=== PATIENT | female | born 1965 | race Caucasian/White ===

== ENCOUNTER 2017-10-31 15:12 | Outpatient (CLI) | END 2017-10-31 16:09 | disposition home or self-care (01) ==

== ENCOUNTER 2017-11-14 15:57 | Outpatient (CLI) | END 2017-11-14 16:32 | disposition home or self-care (01) ==

== ENCOUNTER 2018-09-04 12:16 | Inpatient (IN) | payer OTHER ==
[~2018-09-04] VITALS: Ht 160 cm; Wt 120.9 kg
[~2018-09-04 12:16] MED LIST: APIX5TAB PO; ATOR40TA68 PO; GUAI-637 PO; HYDR25TA6 PO; IBUP-1542 PO; LISI40TA3 PO; METF-849 PO; SODI126M NASAL
[2018-09-04] MEDS ORDERED: SOD CHLORIDE 0.9% 1,000 ML IV STA (13:03)
[2018-09-04] MEDS ORDERED: HYDROmorphONE 1 MG/ML SYG IV STA (13:03)
[2018-09-04] MEDS ORDERED: PROCHLORPERAZINE 10 MG INJ IV STA (13:03)
[2018-09-04] MEDS ORDERED: DIPHENHYDRAMINE 50 MG INJ IV STA (13:03)
--- NOTE | 2018-09-04 13:06 | ERD ---
ER Documentation Chief Complaint Chief Complaint HTN WITH MILD FACIAL ASYMMETRY--HX OF CVA HPI This is a 53-year-old female who stated that last night around 11 PM she developed a occipital pounding headache and noticed that her left face was not moving as well. She said her blood pressure was over 200 systolic and took some lisinopril. She says today her face has not changed for the worse or the better, she has no symptoms in her arms or legs. No speech difficulty. She does states difficult to move her left face, but no tingling ROS All systems reviewed and are negative except as per history of present illness. Medications Home Meds Reported Medications Metformin Hcl* (Metformin Hcl*) 500 Mg Tablet, 500 MG PO WITH BREAKFAST DINNE, #60 TAB 09/04/18 Lisinopril* (Lisinopril*) 40 Mg Tablet, 40 MG PO DAILY, #30 TAB 09/04/18 Apixaban* (Eliquis*) 5 Mg Tablet, 5 MG PO BID, TAB 09/04/18 Nifedipine* (Nifedipine ER*) 30 Mg Tablet.sa, 30 MG PO DAILY, TAB.SA 09/04/18 Discontinued Reported Medications Hydrochlorothiazide* (Hydrochlorothiazide*) 25 Mg Tab, 25 MG PO DAILY, #30 TAB 10/31/17 Atorvastatin* (Atorvastatin*) 40 Mg Tablet, 40 MG PO QHS, #30 TAB 10/31/17 Apixaban* (Eliquis*) 5 Mg Tablet, 5 MG PO BID, TAB 10/31/17 Metformin* (Glucophage*) 500 Mg Tab, 500 MG PO WITH LUNCH DINNER, #60 TAB 10/31/17 Lisinopril* (Lisinopril*) 40 Mg Tablet, 40 MG PO DAILY, #30 TAB 10/31/17 Discontinued Scripts Sodium Chloride (Saline Nasal Mist) 126 Ml Mist, 2 SPRAY NASAL Q2H PRN for NASAL CONGESTION, #1 BOTTLE Prov:JOVAN KAUFFMAN COMPLIANCE ADVISOR 07/20/18 Guaifenesin* (Robitussin*) 100 Mg/5 Ml Syrup, 200 MG PO Q4H PRN for COUGH, #120 ML Prov:JOVAN KAUFFMAN COMPLIANCE ADVISOR 07/20/18 Ibuprofen* (Motrin*) 600 Mg Tab, 600 MG PO Q6H PRN for PAIN AND OR ELEVATED TEMP, #30 TAB Prov:JOVAN KAUFFMAN COMPLIANCE ADVISOR 07/20/18 Allergies Allergies: Coded Allergies: No Known Drug Allergies (Verified Allergy, Unknown, 09/04/18) PMhx/Soc Hx Cardiac Disorders: Yes (HTN, high cholesterol) Hx Miscellaneous Medical Probl: Yes (DM 2) Hx Alcohol Use: No Hx Substance Use: No Hx Tobacco Use: No FmHx Family History: No coronary disease Physical Exam Vitals Vital Signs Date Temp Pulse Resp B/P (MAP) Pulse Ox O2 O2 Flow FiO2 Time Delivery Rate 09/04/18 82 16 120/68 93 Room Air 15:30 (85) 09/04/18 64 14 129/71 94 Room Air 14:40 (90) 09/04/18 98.0 101 18 238/116 95 12:23 (156) Physical Exam Const: Well-developed, well-nourished Head: Atraumatic, normocephalic Eyes: Normal Conjunctiva, PERRLA, EOMI, normal sclera, no nystagmus ENT: Normal External Ears, Nose and Mouth, moist mucus membranes. Neck: Full range of motion. No meningismus, no lymphadenopathy. Resp: Clear to auscultation bilaterally, no wheezing, rhonchi, rales Cardio: Regular rate and rhythm, no murmurs, S1 S2 present Abd: Soft, non tender x 4, non distended. Normal bowel sounds, no guarding or rebound, no pulsitile abdominal masses or bruits Skin: No petechiae or rashes, no ecchymosis , no maculopapular rash Back: No midline or flank tenderness Ext: No cyanosis, or edema, FROM x 4, normal inspection, neurovascularly intact x 4 Neur: Awake and alert, STR 5/5 x 4, sensation intact x 4, there is left- sided facial weakness, she can raise and squint her left eyebrow however her l eft eye does appear to be more open difficult to assess this is a early Carroll's palsy or CVA, cerebellum intact Psych: Normal Mood and Affect Result Diagram: 09/04/18 1318 09/04/18 1318 Results 24 hrs Laboratory Tests Test 09/04/18 13:17 09/04/18 13:18 Prothrombin Time 11.3 Sec Prothrombin Time Ratio 0.9 INR International Normalized Ratio 0.81 Activated Partial Thromboplast Time 25.8 Sec White Blood Count 6.0 10^3/ul Red Blood Count 4.48 10^6/ul Hemoglobin 12.6 g/dl Hematocrit 40.5 % Mean Corpuscular Volume 90.4 fl Mean Corpuscular Hemoglobin 28.1 pg Mean Corpuscular Hemoglobin Concent 31.1 g/dl Red Cell Distribution Width 13.8 % Platelet Count 254 10^3/UL Mean Platelet Volume 10.4 fl Immature Granulocytes % 0.500 % Neutrophils % 57.7 % Lymphocytes % 33.0 % Monocytes % 7.4 % Eosinophils % 0.7 % Basophils % 0.7 % Nucleated Red Blood Cells % 0.0 /100WBC Immature Granulocytes # 0.030 10^3/ul Neutrophils # 3.5 10^3/ul Lymphocytes # 2.0 10^3/ul Monocytes # 0.4 10^3/ul Eosinophils # 0.0 10^3/ul Basophils # 0.0 10^3/ul Nucleated Red Blood Cells # 0.0 10^3/ul Sodium Level 142 mmol/L Potassium Level 3.9 mmol/L Chloride Level 106 mmol/L Carbon Dioxide Level 31 mmol/L Anion Gap 5 Blood Urea Nitrogen 14 mg/dl Creatinine 0.61 mg/dl Est Glomerular Filtrat Rate mL/min > 60 mL/min Glucose Level 114 mg/dl Calcium Level 10.0 mg/dl Current Medications Medications Dose Sig/[place] Start Time Status Last (Trade) Ordered Route PRN Stop Time Admin Dose Reason Admin Sodium 1,000 ml @ Q1H STAT 09/04/18 DC 09/04/18 Chloride 1,000 mls/hr IV 13:03 13:34 09/04/18 14:02 10 mg ONCE STAT 09/04/18 DC 09/04/18 Prochlorperaz IV 13:03 13:34 ine 09/04/18 13:05 (Compazine Inj) 1 mg ONCE STAT 09/04/18 DC 09/04/18 Hydromorphone IV 13:03 13:34 HCl 09/04/18 13:05 (Dilaudid) 25 mg ONCE STAT 09/04/18 DC 09/04/18 Diphenhydrami IV 13:03 13:34 ne HCl 09/04/18 13:05 (Benadryl) Procedures/MDM MR #: [id number] DOS: 09/04/18 1303 Ordering MD: KELECHI ASHRAF DO Location: E/R Room/Bed: PROCEDURE: CT Brain without contrast. CLINICAL INDICATION: Headache. TECHNIQUE: A CT of the brain was performed on a GE Hut[employer]rippeed 64-slice CT scanner utilizing axial imaging from the skull base through the vertex without IV contrast. Multiplanar reformatted images were made. Images were reviewed on a PACS workstation. The CTDIvol is 37.7 mGy and the DLP is 634.2 mGycm. One or the following dose reduction techniques were used: -Automated exposure control. -Adjustment of the mA and/or KV according to patient's size. -Use of iterative reconstruction technique. DICOM images are available. COMPARISON: None FINDINGS: There is no intracranial hemorrhage, mass effect, or midline shift. No extra- axial fluid collection is seen. The ventricles and sulci are normal in size and configuration. The density of the brain is normal, and the espinal white matter differentiation appears well-preserved. There is a small fluid level in the right sphenoid sinus. Mastoid air cells appear aerated. The osseous calvarium appears intact. IMPRESSION: 1. No acute intracranial process identified. 2. Small fluid level in the right sphenoid sinus. RPTAT: AACC Physician Eva Date Time Electronically viewed and signed by Franki Stoner Physician on 09/04/2018 14:24 JH/ CC: KELECHI ASHRAF DO [id number] Evaluation at 1545 the patient says her headache is gone, her left face seems a bit better as far as strength goes but she says it still feels numb. I cannot clearly discern if this is a Carroll's palsy which it certainly could be or a TIA/CVA. Will admit for MRI and stroke workup to be sure Departure Diagnosis: Primary Impression: Lower facial weakness Additional Impression: Headache Headache type: unspecified Headache chronicity pattern: unspecified pattern Intractability: not intractable Qualified Codes: R51 - Headache Condition: Stable LEKKOS,APOSTOLOS A. DO Sep 04, 2018 13:06
[2018-09-04] MEDS ORDERED: APIX5TAB PO (13:35)
[2018-09-04] MEDS ORDERED: NIFE30TA23 PO (13:35)
[2018-09-04] MEDS ORDERED: LISI40TA3 PO (13:36)
[2018-09-04] MEDS ORDERED: METF500T24 PO (13:37)
[2018-09-04] MEDS ORDERED: ACETAMINOPHEN 325 MG TAB PO PRN ×2 (18:00→18:30)
[2018-09-04] MEDS ORDERED: ONDANSETRON 4 MG INJ IV PRN ×2 (18:00→18:30)
[2018-09-04] MEDS ORDERED: NACL 0.9% 3 ML SYG IV SCH (18:00)
[2018-09-04] MEDS ORDERED: SOD CHLORIDE 0.9% 1,000 ML IV SCH (18:22)
[2018-09-04] MEDS ORDERED: GLUCOSE GEL 15 GRAM TUBE PO PRN ×2 (18:30)
[2018-09-04] MEDS ORDERED: GLUCAGON 1 MG INJ IM PRN (18:30)
[2018-09-04] MEDS ORDERED: ASPIRIN 81 MG TAB PO ONE ×2 (18:30)
[2018-09-04] MEDS ORDERED: GLUCOSE GEL 15 GRAM TUBE BUCCAL PRN (18:30)
[2018-09-04] MEDS ORDERED: DEXTROSE 50% 50 ML SYRINGE IV PRN ×2 (18:30)
--- NOTE | 2018-09-04 18:45 | STROKE ---
Date/Time of Note Date/Time of Note DATE: 09/04/18 TIME: 18:44 Patient Information General Arrival Date Age 53 Gender female Weight 118 kg Vital Signs Vital Signs Vital Signs Date Temp Pulse Resp B/P (MAP) Pulse Ox O2 O2 Flow FiO2 Time Delivery Rate 09/04/18 63 12 116/64 100 Room Air 17:30 (81) 09/04/18 98.0 12:23 Patient History Current Medications Allergies: Coded Allergies: No Known Drug Allergies (Verified Allergy, Unknown, 09/04/18) Labs Coagulation Labs: Coagulation Test 09/04/18 13:17 Activated Partial Thromboplast Time 25.8 Sec (23.0-35.0) History & Physical History of Present Illness 53 F PMH headache LKW 2330 PST 09/03/2018 with headache last night in the occipital region and left facial tingling. Local ED concerned for Carroll's palsy. Left forehead is involved. NCHCT without acute pathology. Headache and facial weakness resolved in ED with treatment directed at migraine. Admitting team may mac patient had right leg weakness and wanted Neurology consult to comment on possibility of stroke. Patient denies leg symptoms, only right face weakness. NIH Stroke Scale NIH Stroke Scale [id number] Total Score: [id number] Date/Time Recorded DATE: 09/04/18 TIME: 18:44 Submitted By Florentino Balderas t-PA Imaging Review Date/Time Imaging Reviewed DATE: 09/04/18 TIME: 18:44 t-PA Administration Weight 118 kg Recommedation submitted by Florentino Balderas Recommendations Recommendation 53 F with objective left facial weakness starting last night affecting lower>upper face, concerning for Carroll's palsy. But patient subjectively has right facial weakness and headache. Admitting team also noted RLE drift that is no apparent for me and patient denies leg weakness. Given dynamic history, would pursue MRI Brain to ensure no new stroke. - MRI Brain to rule-out new stroke and guide treament of Carroll's palsy if MRI Brain negative for stroke - There is no indication for emergent CTA Head/Neck as patient not a mechanical intervention evaluation candidate - Further plan per local Neurology team based on MRI Brain results FLORENTINO BALDERAS MD Sep 04, 2018 18:45
--- NOTE | 2018-09-04 19:07 | HP ---
Date/Time of Note Date/Time of Note DATE: 09/04/18 TIME: 19:07 Assessment/Plan VTE Prophylaxis Pharmacological prophylaxis: other Lines/Catheters IV Catheter Type (from Nrs): Saline Lock Assessment/Plan Hospital Course Patient is a female the past medical history significant for hypertension, hypertension, diabetes mellitus, CVA in 2014 with no significant residual effects who presents to [facility] for onset of headache and right-sided facial paralysis. Patient states that approximately at 11 PM last night there was a onset of headache that was worse in the back of her neck. Patient went to sleep taking nothing of it and awoke. Patient subsequently complained that although the headache seemed to resolve a bit she noticed at 11 AM today that her face felt weird and she went into the bathroom and noticed that there was a droop as well as numbness on the right side of her face. Currently patient states that the headache is still there but very mild and she still has right-sided numbness. When asked if she has any left facial issues patient states she does not know. Patient is asked if she has any upper extremity or lower extremity issues she states that she does not feel any different than her normal baseline. Currently patient is resting well and other than complaints of her face and mild headache has no acute complaints. Patient denies chest pain, shortness of breath, abdominal pain, leg pain. Objective Physical exam General: Patient is laying in bed and answers questions appropriately Mentation: Patient is alert and oriented 4, Head: Normocephalic atraumatic Face: Able to close eyes, mildly worse closing on the left side, left-sided facial droop, sensation decrease on the right side Eyes: EOMI, pupils reactive to light Neck: Supple, nontender, midline Respiratory: Clear to auscultation bilaterally Cardiovascular: regular rate, no obvious murmurs Gastrointestinal: non-tender to palpation, bowel sounds heard. Neurological: Moves all extremities spontaneously, however noted that her right lower extremity is mildly weaker than her left lower extremity, no loss of sensation Skin: No new skin lesions Assessment and plan Right facial numbness, left facial droop, right lower extremity weakness -Code stroke called as I was assessing patient, concern for Carroll's palsy, unsure if CVA, however recommends full workup for MRI, CTA head and neck is not needed -Aspirin -Statin, lipid panel pending -MRI, MRA -Neurology consulted, Dr. Ayala Right lower extremity weakness -Patient denies any complaint with right lower extremity weakness however on physical exam it does appear mildly weaker, this may be patient's chronic baseline presentation. Monitor -Neurology input appreciated Left facial motor weakness with droop -Findings consistent with possible Carroll palsy -Moderate, severe symptoms, will order prednisone and valacyclovir for now -Neurology consulted Hypertensive emergency -Possible etiology of patient's symptoms -Treat blood pressure as tolerated -Currently normotensive Diabetes mellitus -Insulin while in-house -Monitor History of CVA -Patient states that she had a CVA in 2014 and was subsequently placed on Eliquis. Patient has been compliant with her medications and does see a family practice physician on a normal basis. Will hold Eliquis for now as there is still ruling out a an acute stroke, will continue with aspirin for now and will resume Eliquis when okay with neurology. Disposition -We will treat for acute Carroll palsy as well as possible CVA at this time, MRI pending, neurology consultation pending Result Diagram: 09/04/18 1318 09/04/18 1318 Results 24hrs Laboratory Tests Test 09/04/18 13:17 09/04/18 13:18 Prothrombin Time 11.3 L Prothrombin Time Ratio 0.9 INR International Normalized Ratio 0.81 Activated Partial Thromboplast Time 25.8 White Blood Count 6.0 Red Blood Count 4.48 Hemoglobin 12.6 Hematocrit 40.5 Mean Corpuscular Volume 90.4 Mean Corpuscular Hemoglobin 28.1 L Mean Corpuscular Hemoglobin Concent 31.1 L Red Cell Distribution Width 13.8 Platelet Count 254 Mean Platelet Volume 10.4 Immature Granulocytes % 0.500 H Neutrophils % 57.7 Lymphocytes % 33.0 Monocytes % 7.4 Eosinophils % 0.7 Basophils % 0.7 Nucleated Red Blood Cells % 0.0 Immature Granulocytes # 0.030 Neutrophils # 3.5 Lymphocytes # 2.0 Monocytes # 0.4 Eosinophils # 0.0 Basophils # 0.0 Nucleated Red Blood Cells # 0.0 Sodium Level 142 Potassium Level 3.9 Chloride Level 106 Carbon Dioxide Level 31 Anion Gap 5 Blood Urea Nitrogen 14 Creatinine 0.61 Est Glomerular Filtrat Rate mL/min > 60 Glucose Level 114 Calcium Level 10.0 HPI/ROS Admit Date/Time Admit Date/Time PMH/Family/Social Past Medical History Medications Current Medications IV Flush (NS 3 ml) 3 ml PER PROTOCOL IV ; Start 09/04/18 at 18:00 Ondansetron HCl (Zofran Inj) 4 mg Q6H PRN IV NAUSEA/VOMITING; Start 09/04/18 at 18:00 Acetaminophen (Tylenol Tab) 650 mg Q6H PRN PO .PAIN 1-3 OR TEMP; Start 09/04/18 at 18:00 Acetaminophen/ Hydrocodone Bitart ([place] (5/325)) 1 tab Q6H PRN PO .PAIN 4-6; Start 09/04/18 at 18:00 Atorvastatin Calcium (Lipitor) 80 mg HS PO ; Start 09/04/18 at 21:00 Lisinopril (Zestril) 40 mg DAILY PO ; Start 09/05/18 at 09:00 Nifedipine (Procardia Xl) 30 mg DAILY PO ; Start 09/05/18 at 09:00 Diagnostic Test (Pha) (Accu-Chek) 1 ea 02 XX ; Start 09/05/18 at 02:00 Insulin Aspart (Novolog Insulin Pen) NOVOLOG *MILD* ALGORITHM WITH MEALS BEDTIME SC ; Start 09/04/18 at 21:00 Miscellaneous Information 1 ea NOTE XX ; Start 09/04/18 at 18:30 Glucose (Glutose) 15 gm Q15M PRN PO DECREASED GLUCOSE; Start 09/04/18 at 18:30 Glucose (Glutose) 22.5 gm Q15M PRN PO DECREASED GLUCOSE; Start 09/04/18 at 18:30 Dextrose (D50w Syringe) 25 ml Q15M PRN IV DECREASED GLUCOSE; Start 09/04/18 at 18:30 Dextrose (D50w Syringe) 50 ml Q15M PRN IV DECREASED GLUCOSE; Start 09/04/18 at 18:30 Glucagon (Glucagen) 1 mg Q15M PRN IM DECREASED GLUCOSE; Start 09/04/18 at 18:30 Glucose (Glutose) 15 gm Q15M PRN BUCCAL DECREASED GLUCOSE; Start 09/04/18 at 18:30 Sodium Chloride 1,000 ml @ 80 mls/hr [id number] IV ; Start 09/04/18 at 18:22; S top 09/05/18 at 06:51 Ondansetron HCl (Zofran Inj) 4 mg ER BRIDGE PRN IV NAUSEA/VOMITING; Start 3/26 /19 at 18:30; Stop 09/05/18 at 18:29 Acetaminophen (Tylenol Tab) 650 mg ER BRIDGE PRN PO .MILD PAIN 1-3 OR TEMP; Start 09/04/18 at 18:30; Stop 09/05/18 at 18:29 Aspirin (Aspirin) 81 mg DAILY PO ; Start 09/05/18 at 09:00 Prednisone (Prednisone) 60 mg DAILY PO ; Start 09/04/18 at 22:00 Valacyclovir HCl (Valtrex) 1,000 mg BID PO ; Start 09/04/18 at 22:00 Hydralazine HCl (Apresoline) 10 mg Q4H PRN IV sbp >160; Start 09/04/18 at 19:00 Coded Allergies: No Known Drug Allergies (Verified Allergy, Unknown, 09/04/18) Social History Smoking Status: Never smoker Exam/Review of Systems Vital Signs Vitals Vital Signs Date Temp Pulse Resp B/P (MAP) Pulse Ox O2 O2 Flow FiO2 Time Delivery Rate 09/04/18 63 12 116/64 100 Room Air 17:30 (81) 09/04/18 98.0 12:23 MICK MCDERMOTT Sep 04, 2018 19:07
[2018-09-04] MEDS: HYDROCODONE/APAP (5/325) TAB PO PRN (19:18)
[2018-09-04] MEDS: INSULIN ASPART [NOVOLOG] 3 ML PEN SC SCH (21:00)
[2018-09-04] MEDS ORDERED: APIXABAN 5 MG TABLET PO SCH (21:00)
[2018-09-04] MEDS ORDERED: LORAZEPAM 2 MG INJ IV ONE (23:00)
[2018-09-04] MEDS: predniSONE 20 MG TAB PO SCH (23:49)
[2018-09-04] MEDS: valACYclovir 500 MG TAB PO SCH (23:50)
[2018-09-04] MEDS: ATORVASTATIN 80 MG TAB PO SCH (23:50)
[2018-09-05] VITALS (16 sets, daily range): BP systolic 135–180; BP diastolic 65–91; PULSE 85–118; RESP 16–20; Ht 160 cm; Wt 120.9 kg
[2018-09-05] MEDS: ACCU-CHEK XX SCH (02:00)
[2018-09-05] MEDS: hydrALAzine 20 MG INJ IV PRN ×3 (03:03→18:19)
[2018-09-05] MEDS: HYDROCODONE/APAP (5/325) TAB PO PRN (08:20)
[2018-09-05] MEDS: predniSONE 20 MG TAB PO SCH (08:20)
[2018-09-05] MEDS: LISINOPRIL 20 MG TAB PO SCH (08:21)
[2018-09-05] MEDS ORDERED: ASPIRIN 81 MG TAB PO SCH ×2 (09:00)
[2018-09-05] MEDS ORDERED: NIFEdipine (XL) 30 MG TAB PO SCH (09:00)
[2018-09-05] MEDS: INSULIN ASPART [NOVOLOG] 3 ML PEN SC SCH ×4 (09:51→20:42)
[2018-09-05] MEDS: valACYclovir 500 MG TAB PO SCH ×2 (10:08→20:19)
--- NOTE | 2018-09-05 11:39 | CONS ---
Assessment/Plan Assessment/Plan Hospital Course 53 yo F c/ multiple cerebrovascular risk factors including a reported prior stroke in 2015... who presents with complaints of headache w/ R face numbness, and L face weakness....for which neurology is consulted.. Recrudescence of prior stroke symptoms in the context of hypertensive urgency is possible Atypical migraine is additionally considered... Carroll's palsy is unlikely.. MRI/A head and neck are reassuringly without acute pathology. LDL 153 P: Clarify headache Hx.. Add UA, UDS Add CXR Continue eliquis for secondary stroke prevention Agree w/ liptor for the same BP, glucose control and other medical management per primary PT/OT/ST as necessary Will follow Consultation Date/Type/Reason Admit Date/Time Type of Consult Neurology Reason for Consultation face weakness Requesting Provider: MICK MCDEROMTT Date/Time of Note DATE: 09/05/18 TIME: 11:39 Hx of Present Illness The pt confirms the story below. Endorses R facial numbness. States that her L facial symptoms have significantly improved. Currently denies headache at this time. It is elsewhere noted: Patient is a female the past medical history significant for hypertension, hypertension, diabetes mellitus, CVA in 2015 with no significant residual effects who presents to [facility] for onset of headache and right-sided facial paralysis. Patient states that approximately at 11 PM last night there was a onset of headache that was worse in the back of her neck. Patient went to sleep taking nothing of it and awoke. Patient subsequently complained that although the headache seemed to resolve a bit she noticed at 11 AM today that her face felt weird and she went into the bathroom and noticed that there was a droop as well as numbness on the right side of her face. Currently patient states that the headache is still there but very mild and she still has right-sided numbness. When asked if she has any left facial issues patient states she does not know. Patient is asked if she has any upper extremity or lower extremity issues she states that she does not feel any different than her normal baseline. Currently patient is resting well and other than complaints of her face and mild headache has no acute complaints. Patient denies chest pain, shortness of breath, abdominal pain, leg pain. negative unless noted otherwise in HPI Exam/Review of Systems Exam Vitals Vital Signs Date Temp Pulse Resp B/P (MAP) Pulse Ox O2 O2 Flow FiO2 Time Delivery Rate 09/05/18 105 08:01 09/05/18 98.6 18 139/68 97 07:09 (91) 09/05/18 Room Air 02:39 Intake and Output 09/04/18 09/04/18 09/05/18 1515:00 23:00 07:00 IntakeIntake Total 100 ml BalanceBalance 100 ml Exam PE: Gen Appearance: No Apparent Distress HEENT: Normocephalic Cardiovascular: Regular rate Lungs: Clear bilaterally Abdomen: Soft Extremities: Dry NE: The patient was alert and oriented.. Language was normal. Fund of knowledge was normal. Pupils were equal and reactive to light. There was no afferent pupillary defect. Visual leon were normal. Funduscopic examination was limited. Extra-ocular movements were full. Ptosis was absent. There was no nystagmus. Facial sensation was diminished on the R. Face was symmetric with normal strength. Hearing was intact. Palate movements were normal. Neck strength was normal. There was normal tongue bulk and speed of movement. Tone was normal. Muscle bulk was normal. I did not see fasciculations. Arms and legs were weak on the R. Vibration sensation was normal. Temperature and pinprick sensation was normal. Rapid alternating movements were normal. There was no dysmetria. There was no intention tremor. Gait was unsteady, favoring the L leg. Arm and leg reflexes were 2+ and symmetric. Ecsoto's sign was absent. Plantar responses were flexor. Results Result Diagram: 09/05/18 0552 09/05/18 0552 Results 24hrs Laboratory Tests Test 09/04/18 13:17 09/04/18 13:18 09/04/18 23:58 09/05/18 03:01 Prothrombin Time 11.3 L Prothrombin Time 0.9 Ratio INR International 0.81 Normalized Ratio Activated 25.8 Partial Thromboplast Time White Blood Count 6.0 Red Blood Count 4.48 Hemoglobin 12.6 Hematocrit 40.5 Mean Corpuscular 90.4 Volume Mean Corpuscular 28.1 L Hemoglobin Mean Corpuscular 31.1 L Hemoglobin Concent Red Cell 13.8 Distribution Width Platelet Count 254 Mean Platelet Volume 10.4 Immature 0.500 H Granulocytes % Neutrophils % 57.7 Lymphocytes % 33.0 Monocytes % 7.4 Eosinophils % 0.7 Basophils % 0.7 Nucleated Red Blood 0.0 Cells % Immature 0.030 Granulocytes # Neutrophils # 3.5 Lymphocytes # 2.0 Monocytes # 0.4 Eosinophils # 0.0 Basophils # 0.0 Nucleated Red Blood 0.0 Cells # Sodium Level 142 Potassium Level 3.9 Chloride Level 106 Carbon Dioxide Level 31 Anion Gap 5 Blood Urea Nitrogen 14 Creatinine 0.61 Est Glomerular > 60 Filtrat Rate mL/min Glucose Level 114 Calcium Level 10.0 Bedside Glucose 100 178 Test 09/05/18 05:52 09/05/18 08:00 09/05/18 09:46 White Blood Count 6.3 Red Blood Count 4.56 Hemoglobin 12.9 Hematocrit 41.8 Mean Corpuscular 91.7 Volume Mean Corpuscular 28.3 L Hemoglobin Mean Corpuscular 30.9 L Hemoglobin Concent Red Cell 14.0 Distribution Width Platelet Count 269 Mean Platelet Volume 10.9 H Immature 1.100 H Granulocytes % Neutrophils % 81.8 H Lymphocytes % 14.6 L Monocytes % 2.1 Eosinophils % 0.2 Basophils % 0.2 Nucleated Red Blood 0.0 Cells % Immature 0.070 H Granulocytes # Neutrophils # 5.2 Lymphocytes # 0.9 Monocytes # 0.1 L Eosinophils # 0.0 Basophils # 0.0 Nucleated Red Blood 0.0 Cells # Sodium Level 141 Potassium Level 4.4 Chloride Level 105 Carbon Dioxide Level 24 Anion Gap 12 # Blood Urea Nitrogen 16 Creatinine 0.61 Est Glomerular > 60 Filtrat Rate mL/min Glucose Level 161 Hemoglobin A1c 6.1 H Calcium Level 9.8 Magnesium Level 2.1 Total Bilirubin 0.3 Direct Bilirubin 0.00 Indirect Bilirubin 0.3 Aspartate Amino 59 H Transf (AST/SGOT) Alanine 22 Aminotransferase (AL T/SGPT) Alkaline Phosphatase 74 Total Protein 7.4 Albumin 4.1 Globulin 3.30 H Albumin/Globulin 1.24 Ratio Triglycerides Level 128 Cholesterol Level 224 H LDL Cholesterol, 153 Calculated HDL Cholesterol 45 Cholesterol/HDL 4.9 Ratio Thyroid Stimulating 1.180 Hormone (TSH) Bedside Glucose 146 203 Medications Medication Current Medications IV Flush (NS 3 ml) 3 ml PER PROTOCOL IV ; Start 09/04/18 at 18:00 Ondansetron HCl (Zofran Inj) 4 mg Q6H PRN IV NAUSEA/VOMITING; Start 09/04/18 at 18:00 Acetaminophen (Tylenol Tab) 650 mg Q6H PRN PO .PAIN 1-3 OR TEMP Last administered on 09/04/18 23:49; Admin Dose 650 MG; Start 09/04/18 at 18:00 Acetaminophen/ Hydrocodone Bitart ([place] (5/325)) 1 tab Q6H PRN PO .PAIN 4-6 Last administered on 09/05/18 08:20; Admin Dose 1 TAB; Start 09/04/18 at 18:00 Atorvastatin Calcium (Lipitor) 80 mg HS PO Last administered on 09/04/18 23:50; Admin Dose 80 MG; Start 09/04/18 at 21:00 Lisinopril (Zestril) 40 mg DAILY PO Last administered on 09/05/18 08:21; Admin Dose 40 MG; Start 09/05/18 at 09:00 Nifedipine (Procardia Xl) 30 mg DAILY PO Last administered on 09/05/18 08:21; Admin Dose 30 MG; Start 09/05/18 at 09:00 Diagnostic Test (Pha) (Accu-Chek) 1 ea 02 XX Last administered on 09/05/18at 02:00; Admin Dose 1 EA; Start 09/05/18 at 02:00 Insulin Aspart (Novolog Insulin Pen) NOVOLOG *MILD* ALGORITHM WITH MEALS BEDTIME SC Last administered on 09/05/18 11:37; Admin Dose 1 UNIT; Start 09/04/18 at 21:00 Miscellaneous Information 1 ea NOTE XX ; Start 09/04/18 at 18:30 Glucose (Glutose) 15 gm Q15M PRN PO DECREASED GLUCOSE; Start 09/04/18 at 18:30 Glucose (Glutose) 22.5 gm Q15M PRN PO DECREASED GLUCOSE; Start 09/04/18 at 18:30 Dextrose (D50w Syringe) 25 ml Q15M PRN IV DECREASED GLUCOSE; Start 09/04/18 at 18:30 Dextrose (D50w Syringe) 50 ml Q15M PRN IV DECREASED GLUCOSE; Start 09/04/18 at 18:30 Glucagon (Glucagen) 1 mg Q15M PRN IM DECREASED GLUCOSE; Start 09/04/18 at 18:30 Glucose (Glutose) 15 gm Q15M PRN BUCCAL DECREASED GLUCOSE; Start 09/04/18 at 18:30 Prednisone (Prednisone) 60 mg DAILY PO Last administered on 3/27/19at 08:20; Admin Dose 60 MG; Start 09/04/18 at 22:00 Valacyclovir HCl (Valtrex) 1,000 mg BID PO Last administered on 09/05/18at 10:08; Admin Dose 1,000 MG; Start 09/04/18 at 22:00 Hydralazine HCl (Apresoline) 10 mg Q4H PRN IV sbp >160 Last administered on 09/05/18at 03:03; Admin Dose 10 MG; Start 09/04/18 at 19:00 Pantoprazole (Protonix Tab) 40 mg DAILY@06 PO ; Start 09/05/18 at 12:00 Apixaban (Eliquis) 5 mg BID PO ; Start 09/06/18 at 09:00 Past Medical History reviewed Home Meds Reported Medications Metformin Hcl* (Metformin Hcl*) 500 Mg Tablet, 500 MG PO WITH BREAKFAST DINNE, #60 TAB 09/04/18 Lisinopril* (Lisinopril*) 40 Mg Tablet, 40 MG PO DAILY, #30 TAB 09/04/18 Apixaban* (Eliquis*) 5 Mg Tablet, 5 MG PO BID, TAB 09/04/18 Nifedipine* (Nifedipine ER*) 30 Mg Tablet.sa, 30 MG PO DAILY, TAB.SA 09/04/18 Discontinued Reported Medications Hydrochlorothiazide* (Hydrochlorothiazide*) 25 Mg Tab, 25 MG PO DAILY, #30 TAB 10/31/17 Atorvastatin* (Atorvastatin*) 40 Mg Tablet, 40 MG PO QHS, #30 TAB 10/31/17 Apixaban* (Eliquis*) 5 Mg Tablet, 5 MG PO BID, TAB 10/31/17 Metformin* (Glucophage*) 500 Mg Tab, 500 MG PO WITH LUNCH DINNER, #60 TAB 10/31/17 Lisinopril* (Lisinopril*) 40 Mg Tablet, 40 MG PO DAILY, #30 TAB 10/31/17 Discontinued Scripts Sodium Chloride (Saline Nasal Mist) 126 Ml Mist, 2 SPRAY NASAL Q2H PRN for NASAL CONGESTION, #1 BOTTLE Prov:JOVAN KAUFFMAN. [employer]URAL DEVELOPER 07/20/18 Guaifenesin* (Robitussin*) 100 Mg/5 Ml Syrup, 200 MG PO Q4H PRN for COUGH, #120 ML Prov:JOVAN KAUFFMAN. NATURAL DEVELOPER 07/20/18 Ibuprofen* (Motrin*) 600 Mg Tab, 600 MG PO Q6H PRN for PAIN AND OR ELEVATED TEMP, #30 TAB Prov:JOVAN KAUFFMAN Mariam [employer] DEVELOPER 07/20/18 Medications Current Medications IV Flush (NS 3 ml) 3 ml PER PROTOCOL IV ; Start 09/04/18 at 18:00 Ondansetron HCl (Zofran Inj) 4 mg Q6H PRN IV NAUSEA/VOMITING; Start 09/04/18 at 18:00 Acetaminophen (Tylenol Tab) 650 mg Q6H PRN PO .PAIN 1-3 OR TEMP Last administered on 09/04/18at 23:49; Admin Dose 650 MG; Start 09/04/18 at 18:00 Acetaminophen/ Hydrocodone Bitart ([place] (5/325)) 1 tab Q6H PRN PO .PAIN 4-6 Last administered on 09/05/18 08:20; Admin Dose 1 TAB; Start 09/04/18 at 18:00 Atorvastatin Calcium (Lipitor) 80 mg HS PO Last administered on 09/04/18at 23:50; Admin Dose 80 MG; Start 09/04/18 at 21:00 Lisinopril (Zestril) 40 mg DAILY PO Last administered on 09/05/18 08:21; Admin Dose 40 MG; Start 09/05/18 at 09:00 Nifedipine (Procardia Xl) 30 mg DAILY PO Last administered on 09/05/18 08:21; Admin Dose 30 MG; Start 09/05/18 at 09:00 Diagnostic Test (Pha) (Accu-Chek) 1 ea 02 XX Last administered on 09/05/18at 02:00; Admin Dose 1 EA; Start 09/05/18 at 02:00 Insulin Aspart (Novolog Insulin Pen) NOVOLOG *MILD* ALGORITHM WITH MEALS BEDTIME SC Last administered on 09/05/18at 11:37; Admin Dose 1 UNIT; Start 09/04/18 at 21:00 Miscellaneous Information 1 ea NOTE XX ; Start 09/04/18 at 18:30 Glucose (Glutose) 15 gm Q15M PRN PO DECREASED GLUCOSE; Start 09/04/18 at 18:30 Glucose (Glutose) 22.5 gm Q15M PRN PO DECREASED GLUCOSE; Start 09/04/18 at 18:30 Dextrose (D50w Syringe) 25 ml Q15M PRN IV DECREASED GLUCOSE; Start 09/04/18 at 18:30 Dextrose (D50w Syringe) 50 ml Q15M PRN IV DECREASED GLUCOSE; Start 09/04/18 at 18:30 Glucagon (Glucagen) 1 mg Q15M PRN IM DECREASED GLUCOSE; Start 09/04/18 at 18:30 Glucose (Glutose) 15 gm Q15M PRN BUCCAL DECREASED GLUCOSE; Start 09/04/18 at 18:30 Prednisone (Prednisone) 60 mg DAILY PO Last administered on 09/05/18at 08:20; Admin Dose 60 MG; Start 09/04/18 at 22:00 Valacyclovir HCl (Valtrex) 1,000 mg BID PO Last administered on 09/05/18at 10:08; Admin Dose 1,000 MG; Start 09/04/18 at 22:00 Hydralazine HCl (Apresoline) 10 mg Q4H PRN IV sbp >160 Last administered on 09/05/18at 03:03; Admin Dose 10 MG; Start 09/04/18 at 19:00 Pantoprazole (Protonix Tab) 40 mg DAILY@06 PO ; Start 09/05/18 at 12:00 Apixaban (Eliquis) 5 mg BID PO ; Start 09/06/18 at 09:00 Allergies: Coded Allergies: No Known Drug Allergies (Verified Allergy, Unknown, 09/04/18) Past Surgical History reviewed Social History reviewed Smoking Status: Never smoker BASILIO BAE NP Sep 05, 2018 11:39 SCOTT MCKNIGHT Sep 05, 2018 14:00
[2018-09-05] MEDS: PANTOPRAZOLE (EC) 40 MG TAB PO SCH (11:56)
[2018-09-05] MEDS ORDERED: BACLOFEN 10 MG TAB PO ONE (13:00)
[2018-09-05] MEDS: HYDROCODONE/APAP (10/325) TAB PO PRN ×2 (13:15→20:19)
--- NOTE | 2018-09-05 14:45 | PN ---
Date/Time of Note Date/Time of Note DATE: 09/05/18 TIME: 14:41 Objective Vitals Vital Signs Date Temp Pulse Resp B/P (MAP) Pulse Ox O2 O2 Flow FiO2 Time Delivery Rate 09/05/18 115 137/70 12:51 (92) 09/05/18 98.2 20 96 Room Air 11:42 Intake and Output 09/04/18 09/04/18 09/05/18 1515:00 23:00 07:00 IntakeIntake Total 100 ml BalanceBalance 100 ml Results Result Diagram: 09/05/18 0552 09/05/18 0552 Medications Medications Current Medications IV Flush (NS 3 ml) 3 ml PER PROTOCOL IV ; Start 09/04/18 at 18:00 Ondansetron HCl (Zofran Inj) 4 mg Q6H PRN IV NAUSEA/VOMITING; Start 09/04/18 at 18:00 Acetaminophen (Tylenol Tab) 650 mg Q6H PRN PO .PAIN 1-3 OR TEMP Last administered on 09/04/18at 23:49; Admin Dose 650 MG; Start 09/04/18 at 18:00 Atorvastatin Calcium (Lipitor) 80 mg HS PO Last administered on 09/04/18at 23:50; Admin Dose 80 MG; Start 09/04/18 at 21:00 Lisinopril (Zestril) 40 mg DAILY PO Last administered on 09/05/18at 08:21; Admin Dose 40 MG; Start 09/05/18 at 09:00 Nifedipine (Procardia Xl) 30 mg DAILY PO Last administered on 09/05/18at 08:21; Admin Dose 30 MG; Start 09/05/18 at 09:00 Diagnostic Test (Pha) (Accu-Chek) 1 ea 02 XX Last administered on 09/05/18at 02:00; Admin Dose 1 EA; Start 09/05/18 at 02:00 Insulin Aspart (Novolog Insulin Pen) NOVOLOG *MILD* ALGORITHM WITH MEALS BEDTIME SC Last administered on 09/05/18at 11:37; Admin Dose 1 UNIT; Start 09/04/18 at 21:00 Miscellaneous Information 1 ea NOTE XX ; Start 09/04/18 at 18:30 Glucose (Glutose) 15 gm Q15M PRN PO DECREASED GLUCOSE; Start 09/04/18 at 18:30 Glucose (Glutose) 22.5 gm Q15M PRN PO DECREASED GLUCOSE; Start 09/04/18 at 18:30 Dextrose (D50w Syringe) 25 ml Q15M PRN IV DECREASED GLUCOSE; Start 09/04/18 at 18:30 Dextrose (D50w Syringe) 50 ml Q15M PRN IV DECREASED GLUCOSE; Start 09/04/18 at 18:30 Glucagon (Glucagen) 1 mg Q15M PRN IM DECREASED GLUCOSE; Start 09/04/18 at 18:30 Glucose (Glutose) 15 gm Q15M PRN BUCCAL DECREASED GLUCOSE; Start 09/04/18 at 18:30 Prednisone (Prednisone) 60 mg DAILY PO Last administered on 09/05/18 08:20; Admin Dose 60 MG; Start 09/04/18 at 22:00 Valacyclovir HCl (Valtrex) 1,000 mg BID PO Last administered on 09/05/18at 10:08; Admin Dose 1,000 MG; Start 09/04/18 at 22:00 Hydralazine HCl (Apresoline) 10 mg Q4H PRN IV sbp >160 Last administered on 09/05/18at 11:56; Admin Dose 10 MG; Start 09/04/18 at 19:00 Pantoprazole (Protonix Tab) 40 mg DAILY@06 PO Last administered on 09/05/18 11:56; Admin Dose 40 MG; Start 09/05/18 at 12:00 Apixaban (Eliquis) 5 mg BID PO ; Start 09/06/18 at 09:00 Acetaminophen/ Hydrocodone Bitart ([place] (10/325)) 1 tab Q6H PRN PO MODERATE PAIN LEVEL 4-6 Last administered on 09/05/18at 13:15; Admin Dose 1 TAB; Start 09/05/18 at 13:00 VTE Prophylaxis Risk score (from Nsg)>0 risk: 2 SCD applied (from Nsg): Yes Lines/Catheters IV Catheter Type: Lanza in Place: No Assessment/Plan Hospital Course Subjective Patient's facial features have somewhat resolved, patient's numbness on right side of the face still persist Objective Physical exam General: Patient is laying in bed and answers questions appropriately Mentation: Patient is alert and oriented 4, Head: Normocephalic atraumatic Face: Able to close eyes, minimal to no left-sided facial droop,, sensation decrease on the right side Eyes: EOMI, pupils reactive to light Neck: Supple, nontender, midline Respiratory: Clear to auscultation bilaterally Cardiovascular: regular rate, no obvious murmurs Gastrointestinal: non-tender to palpation, bowel sounds heard. Neurological: Moves all extremities spontaneously, however noted that her right lower extremity is mildly weaker than her left lower extremity, no loss of sensation Skin: No new skin lesions Assessment and plan Right facial numbness, left facial droop, right lower extremity weakness -Code stroke called as I was assessing patient, concern for Carroll's palsy, unsure if CVA, however recommends full workup for MRI, CTA head and neck is not needed -Aspirin -Statin, lipid panel showing dyslipidemia -MRI, MRA noted, no acute CVA -Ultrasound carotid not showing significant stenosis -Neurology consulted, Dr. Ayala Right lower extremity weakness -Patient denies any complaint with right lower extremity weakness however on physical exam it does appear mildly weaker, this may be patient's chronic baseline presentation. Monitor -Neurology input appreciated Left facial motor weakness with droop -Findings consistent with possible Carroll palsy -Moderate, severe symptoms, will order prednisone and valacyclovir for now -Neurology consulted, due to resolution of symptoms, neurology is not completely convinced, will need to discuss with neurology before discharge, however I believe due to patient's presenting symptoms with possible eye involvement as I observed her on the day of admission, patient may benefit from a treatment of Carroll palsy. As this is still in question. 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 Will need to treat blood pressure before discharge Diabetes mellitus -Insulin while in-house -Monitor History of CVA -Patient states that she had a CVA in 2014 and was subsequently placed on Eliquis. Patient has been compliant with her medications and does see a family practice physician on a normal basis. Continue Eliquis Disposition -We will treat for acute Carroll palsy for now, we will need to concentrate on her headache and uncontrolled hypertension at this time before discharge. MICK MCDERMOTT Sep 05, 2018 14:45
--- NOTE | 2018-09-05 15:47 | RADRPT ---
Echocardiogram Report Patient Name: LIA BAUMANN JUDITHPatient ID: [id number] : 1965 (53y 8m)Study Date: 09/05/2018 7:23:30 AM Gender: FAccession #: [id number] Tech: AureliaAmelia Yeboah [facility] Location: [id number] Ref.Physician: MICK MCDERMOTT Height(Cm): BSA: Weight(Kg): Quality: AdequateAccount #: Procedures: Echocardiographic Report: Transthoracic echocardiogram with complete 2D, M-Mode, and doppler examination. Indications: Cerebrovascular Accident. Measurements: 2D/M Mode Doppler Measurement Value Normal Range Measurement Value Normal Range LVIDd 2D 4.7 [ 3.8 - 5.2 ] cm AV Peak Casey 1.8 [ 100.0 - 170.0 ] cm/sec LVIDs 2D 2.6 [ 2.2 - 3.5 ] cm AV Peak PG 13.0 [ 2.0 - 9.0 ] mmHg LVPWd 2D 1.4 [ 0.6 - 0.9 ] cm LVOT Peak Casey 1.2 [ 70.0 - 110.0 ] cm/sec IVSd 2D 1.5 [ 0.6 - 0.9 ] cm LVOT Peak PG 6.0 [ 2.0 - 6.0 ] mmHg AoR Diam 2D 2.8 [ 2.3 - 3.1 ] cm Lat E` Casey 0.1 [ 10.0 - 15.0 ] cm/sec EDV 2D 104.0 [ 46.0 - 106.0 ] ml TR Peak Casey 2.3 [ 100.0 - 280.0 ] cm/sec ESV 2D 23.9 [ 14.0 - 42.0 ] ml TR Peak PG 21.0 mmHg EF 2D 77.0 [ 54.0 - 74.0 ] percent RVSP 24.0 [ 10.0 - 36.0 ] mmHg LA Dimen 2D 4.2 [ 2.7 - 3.8 ] cm RA Pressure 3.0 mmHg Findings: Left Ventricle: Normal left ventricular systolic function. Normal left ventricular cavity size. Moderate concentric left ventricular hypertrophy. Ejection fraction is visually estimated at 65 %. Tissue Doppler/Mitral Doppler indices are consistent with impaired relaxation (Stage I diastolic dysfunction). Right Ventricle: Normal right ventricular size. Normal right ventricular systolic function. Left Atrium: There is mild enlargement of left atrium. Right Atrium: The right atrium is normal in size. Mitral Valve: Normal appearance of the mitral valve. Mild mitral annular calcification. Trace mitral regurgitation. Aortic Valve: Normal appearance of the aortic valve. No significant aortic stenosis or insufficiency. Tricuspid Valve: Normal appearance of the tricuspid valve. Estimated peak PA systolic pressure 24 mmHg. There is trace tricuspid regurgitation. Pulmonic Valve: Pulmonic valve not well visualized. Pericardium: Normal pericardium with no significant pericardial effusion. Aorta: Normal aortic root. IVC: Normal size and normal respiratory collapse consistent with normal right atrial pressure. Conclusions: Normal left ventricular systolic function. Normal left ventricular cavity size. Moderate concentric left ventricular hypertrophy. Ejection fraction is visually estimated at 65 %. Tissue Doppler/Mitral Doppler indices are consistent with impaired relaxation (Stage I diastolic dysfunction). Normal right ventricular size. Normal right ventricular systolic function. There is mild enlargement of left atrium. The right atrium is normal in size. No significant valvular stenosis or regurgitation seen. Normal pericardium with no significant pericardial effusion. Electronically Signed By: Kamran Encarnacion 2018-09-05 15:46:38 PDT
[2018-09-05] MEDS ORDERED: NIFEdipine (XL) 30 MG TAB PO ONE (17:00)
[2018-09-05] MEDS ORDERED: ACET/BUTAL/CAFF TAB PO ONE ×2 (18:00)
[2018-09-05] MEDS: ATORVASTATIN 80 MG TAB PO SCH (20:18)
[2018-09-06] VITALS (12 sets, daily range): BP systolic 116–136; BP diastolic 58–71; PULSE 88–115; RESP 18–20
[2018-09-06] MEDS: ACCU-CHEK XX SCH (01:24)
[2018-09-06] MEDS: PANTOPRAZOLE (EC) 40 MG TAB PO SCH (05:29)
[2018-09-06] MEDS: INSULIN ASPART [NOVOLOG] 3 ML PEN SC SCH ×3 (07:55→16:19)
[2018-09-06] MEDS: predniSONE 20 MG TAB PO SCH (08:17)
[2018-09-06] MEDS: NIFEdipine (XL) 60 MG TAB PO SCH (08:17)
[2018-09-06] MEDS: valACYclovir 500 MG TAB PO SCH ×2 (08:18→20:28)
[2018-09-06] MEDS: APIXABAN 5 MG TABLET PO SCH ×2 (08:18→20:28)
[2018-09-06] MEDS: LISINOPRIL 20 MG TAB PO SCH (08:18)
[2018-09-06] MEDS: CARISOPRODOL 350 MG TAB PO SCH ×2 (13:05→20:28)
--- NOTE | 2018-09-06 13:29 | PN ---
Date/Time of Note Date/Time of Note DATE: 09/06/18 TIME: 13:25 Objective Vitals Vital Signs Date Temp Pulse Resp B/P (MAP) Pulse Ox O2 O2 Flow FiO2 Time Delivery Rate 09/06/18 115 12:22 09/06/18 98.0 20 116/58 95 Room Air 10:57 (77) Intake and Output 09/05/18 09/05/18 09/06/18 1414:59 22:59 06:59 IntakeIntake Total 800 ml 700 ml BalanceBalance 800 ml 700 ml Results Result Diagram: 09/06/18 0703 09/06/18 0703 Medications Medications Current Medications IV Flush (NS 3 ml) 3 ml PER PROTOCOL IV ; Start 09/04/18 at 18:00 Ondansetron HCl (Zofran Inj) 4 mg Q6H PRN IV NAUSEA/VOMITING; Start 09/04/18 at 18:00 Acetaminophen (Tylenol Tab) 650 mg Q6H PRN PO .PAIN 1-3 OR TEMP Last administered on 09/04/18at 23:49; Admin Dose 650 MG; Start 09/04/18 at 18:00 Atorvastatin Calcium (Lipitor) 80 mg HS PO Last administered on 09/05/18at 20:18; Admin Dose 80 MG; Start 09/04/18 at 21:00 Lisinopril (Zestril) 40 mg DAILY PO Last administered on 09/06/18at 08:18; Admin Dose 40 MG; Start 09/05/18 at 09:00 Diagnostic Test (Pha) (Accu-Chek) 1 ea 02 XX Last administered on 09/06/18at 01:24; Admin Dose 1 EA; Start 09/05/18 at 02:00 Insulin Aspart (Novolog Insulin Pen) NOVOLOG *MILD* ALGORITHM WITH MEALS BEDTIME SC Last administered on 09/06/18at 12:05; Admin Dose 3 UNIT; Start 09/04/18 at 21:00 Miscellaneous Information 1 ea NOTE XX ; Start 09/04/18 at 18:30 Glucose (Glutose) 15 gm Q15M PRN PO DECREASED GLUCOSE; Start 09/04/18 at 18:30 Glucose (Glutose) 22.5 gm Q15M PRN PO DECREASED GLUCOSE; Start 09/04/18 at 18:30 Dextrose (D50w Syringe) 25 ml Q15M PRN IV DECREASED GLUCOSE; Start 09/04/18 at 18:30 Dextrose (D50w Syringe) 50 ml Q15M PRN IV DECREASED GLUCOSE; Start 09/04/18 at 18:30 Glucagon (Glucagen) 1 mg Q15M PRN IM DECREASED GLUCOSE; Start 09/04/18 at 18:30 Glucose (Glutose) 15 gm Q15M PRN BUCCAL DECREASED GLUCOSE; Start 09/04/18 at 18:30 Prednisone (Prednisone) 60 mg DAILY PO Last administered on 09/06/18 08:17; Admin Dose 60 MG; Start 09/04/18 at 22:00 Valacyclovir HCl (Valtrex) 1,000 mg BID PO Last administered on 09/06/18 08:18; Admin Dose 1,000 MG; Start 09/04/18 at 22:00 Hydralazine HCl (Apresoline) 10 mg Q4H PRN IV sbp >160 Last administered on 09/05/18 18:19; Admin Dose 10 MG; Start 09/04/18 at 19:00 Pantoprazole (Protonix Tab) 40 mg DAILY@06 PO Last administered on 09/06/18 05:29; Admin Dose 40 MG; Start 09/05/18 at 12:00 Apixaban (Eliquis) 5 mg BID PO Last administered on 09/06/18 08:18; Admin Dose 5 MG; Start 09/06/18 at 09:00 Acetaminophen/ Hydrocodone Bitart (Plush (10/325)) 1 tab Q6H PRN PO MODERATE PAIN LEVEL 4-6 Last administered on 09/05/18 20:19; Admin Dose 1 TAB; Start 09/05/18 at 13:00 Nifedipine (Procardia Xl) 60 mg DAILY PO Last administered on 09/06/18 08:17; Admin Dose 60 MG; Start 09/06/18 at 09:00 Carisoprodol (Soma) 350 mg TID PO Last administered on 09/06/18 13:05; Admin Dose 350 MG; Start 09/06/18 at 13:00 VTE Prophylaxis Risk score (from Nsg)>0 risk: 4 SCD applied (from Nsg): Yes Lines/Catheters IV Catheter Type: Lanza in Place: No Assessment/Plan Hospital Course Subjective Patient's facial features have significantly resolved, patient still have a terrible headache accompanied with some mild to moderate left shoulder muscle pain as well as leg pain. Objective Physical exam General: Patient is laying in bed and answers questions appropriately Mentation: Patient is alert and oriented 4, Head: Normocephalic atraumatic Face: Able to close eyes, minimal to no left-sided facial droop,, Eyes: EOMI, pupils reactive to light Neck: Supple, nontender, midline Respiratory: Clear to auscultation bilaterally Cardiovascular: regular rate, no obvious murmurs Gastrointestinal: non-tender to palpation, bowel sounds heard. Neurological: Moves all extremities spontaneously, however noted that her right lower extremity is mildly weaker than her left lower extremity, no loss of sensation Skin: No new skin lesions Assessment and plan Right facial numbness, left facial droop, right lower extremity weakness -Code stroke called as I was assessing patient, concern for Carroll's palsy, unsure if CVA, however recommends full workup for MRI, CTA head and neck is not needed -Aspirin -Statin, lipid panel showing dyslipidemia, patient apparently on atorvastatin at home, cannot tolerate side effects, however will monitor very closely and hopefully discharge patient with a low dose of atorvastatin, will attempt to 10 mg as 20 mg provided patient a problem before -MRI, MRA noted, no acute CVA -Ultrasound carotid not showing significant stenosis -Neurology consulted, Dr. Ayala Right lower extremity weakness -Patient denies any complaint with right lower extremity weakness however on phy sical exam it does appear mildly weaker, this may be patient's chronic baseline presentation. Monitor -Neurology input appreciated Left leg pain -Likely musculoskeletal however will get ultrasound venous to rule out DVT -Patient states that she may have had blood clots which is why she is on Eliquis however this is contradictory to what she is saying about her having strokes which is why she is on Eliquis.. Left facial motor weakness with droop -Findings consistent with possible Carroll palsy -Moderate, severe symptoms, will order prednisone and valacyclovir for now -Neurology consulted, due to resolution of symptoms, neurology is not completely convinced, will need to discuss with neurology before discharge, however I believe due to patient's presenting symptoms with possible eye involvement as I observed her on the day of admission, patient may benefit from a treatment of Carroll palsy. As this is still in question. 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 Will need to treat blood pressure before discharge -Headache seems to have come back even stronger, will try a more potent muscle relaxer at this time as patient is having more symptoms of muscle tension in the shoulder neck area, patient also has a long history of questionable migraine headaches, patient may be suffering from complicated migraine which would explain some of above symptoms. Diabetes mellitus -Insulin while in-house -Monitor History of CVA -Patient states that she had a CVA in 2014 and was subsequently placed on Eliquis. Patient has been compliant with her medications and does see a family practice physician on a normal basis. Continue Eliquis Disposition -We will treat for acute Carroll palsy for now, we will need to concentrate on her headache and uncontrolled hypertension at this time before discharge. MICK MCDERMOTT Sep 06, 2018 13:29
--- NOTE | 2018-09-06 16:53 | CONS ---
Assessment/Plan Assessment/Plan Hospital Course 53 yo F c/ multiple cerebrovascular risk factors including a reported prior stroke in 2014... who presents with complaints of headache w/ R face numbness, and L face weakness....for which neurology is consulted.. The clinical picture is most consistent with atypical migraines. Recrudescence of prior stroke symptoms in the context of hypertensive urgency is possible Carroll's palsy is unlikely.. MRI/A head and neck are reassuringly without acute pathology. LDL 153 P: Continue eliquis for secondary stroke prevention Agree w/ liptor for the same BP, glucose control and other medical management per primary PT/OT/ST as necessary Will follow Consultation Date/Type/Reason Admit Date/Time Sep 04, 2018 at 18:23 Type of Consult Neurology Reason for Consultation face weakness Requesting Provider: MICK MCDERMOTT Date/Time of Note DATE: 09/06/18 TIME: 16:50 24 HR Interval Summary Free Text/Dictation Continues acute care. The pt endorses a 20+ year history of migraines with associated nausea/dizziness. She endorses a severe headache at the time of the facial weakness/numbness. Denies headache currently. Exam Vital Signs Vitals Vital Signs Date Temp Pulse Resp B/P (MAP) Pulse Ox O2 O2 Flow FiO2 Time Delivery Rate 09/06/18 94 16:12 09/06/18 98.4 20 134/70 92 Room Air 15:12 (91) Intake and Output 09/05/18 09/05/18 09/06/18 1515:00 23:00 07:00 IntakeIntake Total 800 ml 700 ml BalanceBalance 800 ml 700 ml Exam PE: Gen Appearance: No Apparent Distress HEENT: Normocephalic Cardiovascular: Regular rate Lungs: Clear bilaterally Abdomen: Soft Extremities: Dry NE: The patient was alert and oriented.. Language was normal. Fund of knowledge was normal. Pupils were equal and reactive to light. There was no afferent pupillary defect. Visual leon were normal. Funduscopic examination was limited. Extra-ocular movements were full. Ptosis was absent. There was no nystagmus. Facial sensation was diminished on the R. Face was asymmetric with diminished activation of the L. Hearing was intact. Palate movements were normal. Neck strength was normal. There was normal tongue bulk and speed of movement. Tone was normal. Muscle bulk was normal. I did not see fasciculations. Arms and legs were weak on the R. Vibration sensation was normal. Temperature and pinprick sensation was normal. Rapid alternating movements were normal. There was no dysmetria. There was no intention tremor. Gait was unsteady, favoring the L leg. Arm and leg reflexes were 2+ and symmetric. Escoto's sign was absent. Plantar responses were flexor. BASILIO BAE NP Sep 06, 2018 16:53 SCOTT MCKNIGHT Sep 06, 2018 22:06
[2018-09-06] MEDS: HYDROCODONE/APAP (10/325) TAB PO PRN (19:04)
[2018-09-06] MEDS: ATORVASTATIN 80 MG TAB PO SCH (20:28)
[2018-09-07] VITALS: PULSE 96
[2018-09-07] MEDS: INSULIN ASPART [NOVOLOG] 3 ML PEN SC SCH ×3 (01:10→11:50)
[2018-09-07] MEDS: ACCU-CHEK XX SCH (02:00)
[2018-09-07] MEDS: HYDROCODONE/APAP (10/325) TAB PO PRN (02:21)
[2018-09-07 04:00] VITALS: BP 139/71; PULSE 89; RESP 20
[2018-09-07] MEDS: PANTOPRAZOLE (EC) 40 MG TAB PO SCH (06:50)
[2018-09-07 07:52] VITALS: BP 101/57; PULSE 75; RESP 20
[2018-09-07] MEDS: NIFEdipine (XL) 60 MG TAB PO SCH (08:03)
[2018-09-07] MEDS: LISINOPRIL 20 MG TAB PO SCH (08:03)
[2018-09-07 08:17] VITALS: PULSE 78
[2018-09-07] MEDS: predniSONE 20 MG TAB PO SCH (08:18)
[2018-09-07] MEDS: CARISOPRODOL 350 MG TAB PO SCH ×2 (08:18→12:23)
[2018-09-07] MEDS: APIXABAN 5 MG TABLET PO SCH (08:18)
[2018-09-07] MEDS: valACYclovir 500 MG TAB PO SCH (08:19)
[2018-09-07] MEDS ORDERED: NIFEdipine (XL) 30 MG TAB PO ONE (10:30)
[2018-09-07] MEDS ORDERED: NIFEdipine 10 MG CAP PO ONE (10:30)
[2018-09-07] MEDS ORDERED: POLYETHYLENE GLYCOL 17 GM PACKET PO ONE (11:30)
[2018-09-07 11:40] VITALS: BP 115/68; PULSE 88; RESP 20
--- NOTE | 2018-09-07 12:02 | CONS ---
Assessment/Plan Assessment/Plan Hospital Course 53 yo F c/ multiple cerebrovascular risk factors including a reported prior stroke in 2015... who presents with complaints of headache w/ R face numbness, and L face weakness....for which neurology is consulted.. The clinical picture is most consistent with atypical migraines. Recrudescence of prior stroke symptoms in the context of hypertensive urgency is possible Carroll's palsy is unlikely.. MRI/A head and neck are reassuringly without acute pathology. LDL 153 P: Agree w/ Prednisone for 10 days for headache (w/ PPI) Continue eliquis for secondary stroke prevention Agree w/ liptor for the same BP, glucose control and other medical management per primary PT/OT/ST as necessary Will follow Consultation Date/Type/Reason Admit Date/Time Sep 04, 2018 at 18:23 Type of Consult Neurology Reason for Consultation face weakness, headache Requesting Provider: MICK MCDERMOTT Date/Time of Note DATE: 09/07/18 TIME: 12:02 24 HR Interval Summary Free Text/Dictation Continues acute care. Awaiting discharge today. Exam Vital Signs Vitals Vital Signs Date Temp Pulse Resp B/P (MAP) Pulse Ox O2 O2 Flow FiO2 Time Delivery Rate 09/07/18 97.8 88 20 115/68 95 Room Air 11:40 (84) Intake and Output 09/06/18 09/06/18 09/07/18 1515:00 23:00 07:00 IntakeIntake Total 960 ml 480 ml BalanceBalance 960 ml 480 ml Exam PE: Gen Appearance: No Apparent Distress HEENT: Normocephalic Cardiovascular: Regular rate Lungs: Clear bilaterally Abdomen: Soft Extremities: Dry NE: The patient was alert and oriented.. Language was normal. Fund of knowledge was normal. Pupils were equal and reactive to light. There was no afferent pupillary defect. Visual leon were normal. Funduscopic examination was limited. Extra-ocular movements were full. Ptosis was absent. There was no nystagmus. Facial sensation was intact. Face was asymmetric with diminished activation of the L, though improved. Hearing was intact. Palate movements were normal. Neck strength was normal. There was normal tongue bulk and speed of movement. Tone was normal. Muscle bulk was normal. I did not see fasciculations. Arms and legs were weak on the R. Vibration sensation was normal. Temperature and pinprick sensation was normal. Rapid alternating movements were normal. There was no dysmetria. There was no intention tremor. Gait was deferred. Arm and leg reflexes were 2+ and symmetric. Escoto's sign was absent. Plantar responses were flexor. BASILIO BAE NP Sep 07, 2018 12:02 SCOTT MCKNIGHT Sep 08, 2018 06:40
[2018-09-07] MEDS ORDERED: OMEP20CA16 PO (12:06)
[2018-09-07] MEDS ORDERED: PRED20TA PO (12:06)
[2018-09-07] MEDS ORDERED: CARI350T29 PO (12:06)
--- NOTE | 2018-09-07 12:10 | PDOCDIS ---
Discharge Instructions CONDITION [id number] Patient Condition: [id number] Stable FOLLOW UP/APPOINTMENTS Follow-up Plan 1. Please follow-up with your primary care provider as soon as possible for your chronic migraines and headaches 2. Please continue medications as needed, be very careful with prednisone use as this may cause further infection, if there are signs of infection or fever please return to the ED 3. Please do not take Soma if you are extremely sleepy or lethargic. MICK MCDERMOTT Sep 07, 2018 12:10
--- NOTE | 2018-09-07 12:15 | DS ---
Date/Time of Note Date/Time of Note DATE: 09/07/18 TIME: 12:14 Discharge Summary Admission/Discharge Info Admit Date/Time Sep 04, 2018 at 18:23 Discharge Date/Time Patient Condition: Stable Hospital Course Patient is a female with a past medical history significant for TIA versus CVA, hypertension, chronic headaches, diabetes, who presented with strokelike symptoms. Patient was seen by neurology and through a variety of issues was treated for possible Carroll palsy. Neurology saw patient and deemed patient unlikely for Carroll's palsy. Patient however did exhibit continuous headaches during this time and it was ascertained that the headaches were likely the cause of patient's intermittent stream and the high blood pressure. Patient otherwise does very well on her dose of blood pressure medications at home and will continue that current dose. 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 Patient's occipital headache dramatically resolved with administration of muscle relaxer, patient will be discharged with a very short course of muscle relaxer at this time and per neurology recommendations she should also be discharged on prednisone for her headaches with PPI. Patient will not be discharged with antiviral as neurology does not feel like this is a Carroll palsy and patient will follow up with her primary care provider for her history of headaches, which is likely complicated migraines per neurology. Patient has complete resolution of all her symptoms at this time of discharge, patient's facial numbness, facial motor droop, left leg pain, left arm pain, has completely resolved. Patient has absolutely 0 complaints at this time except for a very mild residual headache which she states that is significantly improved since her previous days. Patient will be discharged to follow-up with her primary care provider Discharge diagnoses Right facial numbness, left facial droop, Right lower extremity weakness, likely baseline, patient does not states she has any complaints with weakness however on physical exam the right is very mildly weaker Left leg pain, resolved Hypertensive emergency, resolved Headache, resolving Diabetes mellitus History of CVA and questionable blood clots, on Eliquis Home Meds Active Scripts Omeprazole* (Omeprazole*) 20 Mg Capsule., 20 MG PO DAILY, #6 CAP Prov:MICK MCDERMOTT 09/07/18 Prednisone* (Prednisone*) 20 Mg Tab, 60 MG PO DAILY for 6 Days, #6 TAB Prov:MICK MCDERMOTT 09/07/18 Carisoprodol* (Carisoprodol*) 350 Mg Tablet, 350 MG PO DAILY PRN for MUSCLE SPASMS for 3 Days, #3 TAB Prov:BALDEMARMICK 09/07/18 Reported Medications Metformin Hcl* (Metformin Hcl*) 500 Mg Tablet, 500 MG PO WITH BREAKFAST DINNE, #60 TAB 09/04/18 Lisinopril* (Lisinopril*) 40 Mg Tablet, 40 MG PO DAILY, #30 TAB 09/04/18 Apixaban* (Eliquis*) 5 Mg Tablet, 5 MG PO BID, TAB 09/04/18 Nifedipine* (Nifedipine ER*) 30 Mg Tablet.sa, 30 MG PO DAILY, TAB.SA 09/04/18 Discontinued Reported Medications Hydrochlorothiazide* (Hydrochlorothiazide*) 25 Mg Tab, 25 MG PO DAILY, #30 TAB 10/31/17 Atorvastatin* (Atorvastatin*) 40 Mg Tablet, 40 MG PO QHS, #30 TAB 10/31/17 Apixaban* (Eliquis*) 5 Mg Tablet, 5 MG PO BID, TAB 10/31/17 Metformin* (Glucophage*) 500 Mg Tab, 500 MG PO WITH LUNCH DINNER, #60 TAB 10/31/17 Lisinopril* (Lisinopril*) 40 Mg Tablet, 40 MG PO DAILY, #30 TAB 10/31/17 Discontinued Scripts Sodium Chloride (Saline Nasal Mist) 126 Ml Mist, 2 SPRAY NASAL Q2H PRN for NASAL CONGESTION, #1 BOTTLE Prov:JOVAN KAUFFMAN. [employer] 07/20/18 Guaifenesin* (Robitussin*) 100 Mg/5 Ml Syrup, 200 MG PO Q4H PRN for COUGH, #120 ML Prov:JOVAN KAUFFMAN. [employer] 07/20/18 Ibuprofen* (Motrin*) 600 Mg Tab, 600 MG PO Q6H PRN for PAIN AND OR ELEVATED TEMP, #30 TAB Prov:JOVAN KAUFFMAN. [employer] 07/20/18 Follow-up Plan 1. Please follow-up with your primary care provider as soon as possible for your chronic migraines and headaches 2. Please continue medications as needed, be very careful with prednisone use as this may cause further infection, if there are signs of infection or fever please return to the ED 3. Please do not take Soma if you are extremely sleepy or lethargic. Primary Care Provider [facility] Time spent on discharge: > 30 minutes Pending Labs Laboratory Tests Test 09/06/18 16:11 09/06/18 23:12 09/07/18 02:17 09/07/18 07:56 Bedside 244 195 135 Glucose mg/dL (70-220) mg/dL (70-220) mg/dL (70-220) White Blood 10.5 Count 10^3/ul (4.8-1 0.8) Red Blood 4.05 Count 10^6/ul (4.20- 5.40) Hemoglobin 11.5 g/dl (12.0-16. 0) Hematocrit 36.7 % (37.0-47.0) Mean 90.6 Corpuscular fl (82.0-101.0 Volume ) Mean 28.4 Corpuscular pg (29.0-33.0) Hemoglobin Mean 31.3 Corpuscular g/dl (32.0-37. Hemoglobin Conc 0) ent Red Cell 14.4 Distribution % (11.5-14.5) Width Platelet Count 276 10^3/UL (140-4 15) Mean Platelet 10.7 Volume fl (7.4-10.4) Immature 0.500 Granulocytes % % (0.001-0.429 ) Neutrophils % 59.7 % (39.0-77.0) Lymphocytes % 33.3 % (15.0-51.0) Monocytes % 5.6 % (0.0-11.0) Eosinophils % 0.4 % (0.0-7.0) Basophils % 0.5 % (0.0-2.0) Nucleated Red 0.0 Blood Cells % /100WBC (0.0-0 .0) Immature 0.050 Granulocytes # 10^3/ul (0.0-0 .031) Neutrophils # 6.3 10^3/ul (1.6-7 .5) Lymphocytes # 3.5 10^3/ul (0.8-2 .9) Monocytes # 0.6 10^3/ul (0.3-0 .9) Eosinophils # 0.0 10^3/ul (0.0-0 .5) Basophils # 0.1 10^3/ul (0.0-0 .1) Nucleated Red 0.0 Blood Cells # 10^3/ul (0.0-0 .0) Sodium Level 142 mmol/L (135-14 4) Potassium 3.8 Level mmol/L (3.5-5. 1) Chloride Level 103 mmol/L (97-110 ) Carbon Dioxide 27 Level mmol/L (21-31) Anion Gap 12 (5-13) Blood Urea 20 Nitrogen mg/dl (7-20) Creatinine 0.67 mg/dl (0.44-1. 00) Est Glomerular > 60 Filtrat mL/min (>60) Rate mL/min Glucose Level 101 mg/dl (70-220) Calcium Level 9.7 mg/dl (8.4-10. 2) Phosphorus 3.8 Level mg/dl (2.5-4.9 ) Magnesium 2.1 Level mg/dl (1.7-2.5 ) Test 09/07/18 08:00 Bedside 106 Glucose mg/dL (70-220) MICK MCDERMOTT Sep 07, 2018 12:15
[2018-09-07 13:39] VITALS: PULSE 81
[2018-09-08] MEDS ORDERED: NIFEdipine (XL) 30 MG TAB PO SCH (09:00)
== END 2018-09-07 14:34 | disposition home or self-care (01) | DRG 103 ==
LOC: E/R 12:16 → TEL 18:23
PROVIDERS: ADMIT Internal Medicine; ATTEND Internal Medicine
DX: G43.809 Other migraine, not intractable, without status migrainosus (principal); I16.1 Hypertensive emergency; Z68.42 Body mass index [BMI] 45.0-49.9, adult; G51.0 Bell's palsy; E66.01 Morbid (severe) obesity due to excess calories; E11.9 Type 2 diabetes mellitus without complications; I10 Essential (primary) hypertension; M79.605 Pain in left leg; M79.602 Pain in left arm; Z86.73 Personal history of transient ischemic attack (TIA), and cerebral infarction without residual deficits; Z79.01 Long term (current) use of anticoagulants; Z79.84 Long term (current) use of oral hypoglycemic drugs
CPT/HCPCS: 36415; 70450; 70544; 70549; 70551; 71045; 80048; 80053; 80061; 80307; 81003; 82962; 83036; 83735; 84100; 84443; 85025; 85610; 85730; 93306; 93880; 93970; 96374; 96375; J0360; J0780; J1170; J1200; J1815; J2060; J7030; J7512

== ENCOUNTER 2018-12-02 14:50 | Emergency (ER) | payer OTHER ==
[~2018-12-02] VITALS: Ht 160 cm; Wt 116.1 kg
[~2018-12-02 14:50] MED LIST changes: -ATOR40TA68 PO; +CARI350T29 PO; -GUAI-637 PO; -HYDR25TA6 PO; -IBUP-1542 PO; -METF-849 PO; +METF500T24 PO; +NIFE30TA23 PO; +OMEP20CA16 PO; +PRED20TA PO; -SODI126M NASAL
[2018-12-02 14:53] VITALS: Ht 160 cm; Wt 116.1 kg
[2018-12-02] MEDS ORDERED: SOD CHLORIDE 0.9% 1,000 ML IV STA (15:23)
[2018-12-02] MEDS ORDERED: ONDANSETRON INJ 8 MG in DEXTROSE 5% 50 ML IV STA (16:01)
[2018-12-02] MEDS ORDERED: morphine 2 MG INJ IV STA (16:01)
[2018-12-02] MEDS ORDERED: ONDANSETRON 4 MG INJ IV STA (16:07)
[2018-12-02] MEDS ORDERED: ERYT1OIN6 RIGHT EYE (16:51)
[2018-12-02] MEDS ORDERED: IBUP-1542 PO (16:51)
--- NOTE | 2018-12-02 16:53 | ERD ---
ER Documentation Chief Complaint Chief Complaint right eye pain unable to open x2 days, asymtomatick no meds today HPI 53 year old female presents to the ED complaining of right eye pain x 2 days. She denies any fevers. She states that the pain is 8/10 intensity and sharp in character. She points to a lesion underneath her right upper eyelid inside. She denies any loss of vision but states she is unable to open her eye without pain. She denies any injuries or hx of similar incidence. She states the pain is worse with light and Extraoccular movement. She also states that the entire area around her eyeball was significantly tender yesterday. She has taken tylenol with mild relief of her pain. ROS All systems reviewed and are negative except as per history of present illness. Medications Home Meds Active Scripts Ibuprofen* (Motrin*) 600 Mg Tab, 600 MG PO Q6H PRN for PAIN AND OR ELEVATED TEMP, #30 TAB Prov:ROCIO MENDENHALL PA-C 12/02/18 Erythromycin Base (Erythromycin) 1 Gm Oint...g., 1 APPLIC RIGHT EYE QID for 7 Days Prov:ROCIO MENDENHALL PA-C 12/02/18 Omeprazole* (Omeprazole*) 20 Mg Capsule.dr, 20 MG PO DAILY, #6 CAP Prov:MICK MCDERMOTT 09/07/18 Prednisone* (Prednisone*) 20 Mg Tab, 60 MG PO DAILY for 6 Days, #6 TAB Prov:MICK MCDERMOTT 09/07/18 Carisoprodol* (Carisoprodol*) 350 Mg Tablet, 350 MG PO DAILY PRN for MUSCLE SPASMS for 3 Days, #3 TAB Prov:MICK MCDERMOTT 09/07/18 Reported Medications Metformin Hcl* (Metformin Hcl*) 500 Mg Tablet, 500 MG PO WITH BREAKFAST DINNE, #60 TAB 09/04/18 Lisinopril* (Lisinopril*) 40 Mg Tablet, 40 MG PO DAILY, #30 TAB 09/04/18 Apixaban* (Eliquis*) 5 Mg Tablet, 5 MG PO BID, TAB 09/04/18 Nifedipine* (Nifedipine ER*) 30 Mg Tablet.sa, 30 MG PO DAILY, TAB.SA 09/04/18 Allergies Allergies: Coded Allergies: No Known Drug Allergies (Verified Allergy, Unknown, 12/02/18) PMhx/Soc History of Surgery: Yes (benign stomach tumor removed) Anesthesia Reaction: No Hx Neurological Disorder: Yes (CVA 2014) Hx Respiratory Disorders: Yes (asthma) Hx Cardiac Disorders: Yes (HTN, high cholesterol) Hx Psychiatric Problems: No Hx Miscellaneous Medical Probl: No Hx Alcohol Use: No Hx Substance Use: No Hx Tobacco Use: No Smoking Status: Never smoker FmHx Family History: No diabetes Physical Exam Vitals Vital Signs Date Temp Pulse Resp B/P (MAP) Pulse Ox O2 O2 Flow FiO2 Time Delivery Rate 12/02/18 72 19 165/86 98 Room Air 17:25 (112) 12/02/18 98.3 79 18 190/108 97 14:53 (135) Physical Exam Const: No acute distress, wearing sunglasses inside the exam room Head: Atraumatic Eyes: Normal Conjunctiva, PERRLA. Right eye: Tenderness around eye. Mass inside upper eye lid that is very tender. Pain with EOMs. ENT: Normal External Ears, Nose and Mouth. Neck: Full range of motion. Resp: Clear to auscultation bilaterally Cardio: Regular rate and rhythm Abd: Soft, non tender, non distended. Skin: No petechiae or rashes Back: No midline or flank tenderness Ext: No cyanosis, or edema Neur: Awake and alert Psych: Normal Mood and Affect Results 24 hrs Current Medications Medications Dose Sig/Wayne Start Time Status Last (Trade) Ordered Route PRN Stop Time Admin Dose Reason Admin Sodium 1,000 ml @ Q1H STAT 12/02/18 DC 12/02/18 Chloride 1,000 mls/hr IV 15:23 15:51 12/02/18 16:22 Morphine 3 mg ONCE STAT 12/02/18 DC 12/02/18 Sulfate IV 16:01 16:17 (morphine) 12/02/18 16:03 Ondansetron 54 ml @ ONCE STAT 12/02/18 DC HCl 8 200 mls/hr IV 16:01 mg/Dextrose 12/02/18 16:09 Ondansetron 4 mg ONCE STAT 12/02/18 DC 12/02/18 HCl (Zofran IV 16:07 16:12 Inj) 12/02/18 16:09 Procedures/MDM ED COURSE: The patient was stable throughout ED course. I kept the patient informed of laboratory and diagnostic imaging results throughout the ED course. DIAGNOSTIC IMAGING: Read by radiologist. PROCEDURE: CT orbits without contrast CLINICAL INDICATION: Right eye pain TECHNIQUE: A CT of the orbits without contrast was performed on a multidetector CT scanner, with multiplanar reformats. One or more of the following dose reduction techniques were used: Automated exposure control, adjustment in mA and / or kV according to patient size, use of iterative reconstructive technique. The exam CTDIvol = 29 mGy and DLP = 369 mGy-cm. DICOM images are available. COMPARISON: CT brain 09/04/2018 FINDINGS: No acute hemorrhage, soft tissue swelling - stranding, fluid collection or fracture is identified involving the orbits. There is a right scleral buckle redemonstrated. The left globe is unremarkable. The bilateral optic nerve sheath complexes, extraocular muscles and lacrimal glands are unremarkable. The bony orbits are intact. Periorbital soft tissues appear unremarkable. Noted are a small right sphenoid sinus fluid level and mild right maxillary and bilateral anterior ethmoid sinus mucosal thickening. IMPRESSION: 1. No acute orbital abnormality identified. 2. Status post right scleral buckling. RPTAT: EE .Galo Parrish MD, MD Date Time Electronically viewed and signed by .Galo Parrish MD, MD on 12/02/2018 16:44 PROCEDURES: IV fluids MEDICATIONS GIVEN: IV fluids, contrast CT, morphine Patient tolerated medication well with no adverse reactions. Patient reported improvement in pain. MEDICAL DECISION MAKING: Patient is a 53 year old female complaining of right eye pain x 2 days. She is wearing sunglasses in the exam room due to pain with light. She reported she had severe pain around her eye yesterday. She denies any injuries or FB but shows me a large lump inside the upper eyelid of the right eye. She was reporting pain with EOMs during exam as well. After consulting Dr. Hurtado, I asked her for a CT in order to r/o orbital cellulitis. CT scan was negative. At this time I believe it to be an internal hordeolum. I have low concerns for orbital cellulist, periorbital cellulitis, abscess, glaucoma, or FB at this time. PT was instructed to follow up with Primary care and Ophthalmology in the next 1-2 d ays. Vital signs were reviewed. Patient is afebrile. Patient was not hypoxic. Patient was hemodynamically stable. PRESCRIPTION: motrin, erythromycin ointment DISCHARGE: At this time, patient is stable for discharge and outpatient management. I have instructed the patient to follow-up with his/her primary care physician in 1-2 days. I have discussed with the patient the possibility of needing to see a specialist for further workup and imaging studies if symptoms persist. I have instructed the patient to promptly return to the ER for any new or worsening symptoms including increased pain, fever, nausea, vomiting, weakness or LOC. The patient and/or family expressed understanding of and agreement with this plan. All questions were answered. Home care instructions were provided. Disclaimer: Inadvertent spelling and grammatical errors are likely due to EHR/dictation software use and do not reflect on the overall quality of patient care. Also, please note that the electronic time recorded on this note does not necessarily reflect the actual time of the patient encounter. Departure Diagnosis: Primary Impression: Internal hordeolum Laterality: right Eyelid: upper Qualified Codes: H00.021 - Hordeolum internum right upper eyelid Condition: Fair Patient Instructions: Sty Referrals: [facility] YOU HAVE RECEIVED A MEDICAL SCREENING EXAM AND THE RESULTS INDICATE THAT YOU DO NOT HAVE A CONDITION THAT REQUIRES URGENT TREATMENT IN THE EMERGENCY DEPARTMENT. FURTHER EVALUATION AND TREATMENT OF YOUR CONDITION CAN WAIT UNTIL YOU ARE SEEN IN YOUR DOCTORS OFFICE WITHIN THE NEXT 1-2 DAYS. IT IS YOUR RESPONSIBILITY TO MAKE AN APPOINTMENT FOR FOLOW-UP CARE. IF YOU HAVE A PRIMARY DOCTOR --you should call your primary doctor and schedule an appointment IF YOU DO NOT HAVE A PRIMARY DOCTOR YOU CAN CALL OUR PHYSICIAN REFERRAL HOTLINE AT IF YOU CAN NOT AFFORD TO SEE A PHYSICIAN YOU CAN CHOSE FROM THE FOLLOWING [facility] [address] [facility] [address] [facility] [address] [facility] [address] [facility] [address] [facility] [address] [facility] [facility] YOU HAVE RECEIVED A MEDICAL SCREENING EXAM AND THE RESULTS INDICATE THAT YOU DO NOT HAVE A CONDITION THAT REQUIRES URGENT TREATMENT IN THE EMERGENCY DEPARTMENT. FURTHER EVALUATION AND TREATMENT OF YOUR CONDITION CAN WAIT UNTIL YOU ARE SEEN IN YOUR DOCTORS OFFICE WITHIN THE NEXT 1-2 DAYS. IT IS YOUR RESPONSIBILITY TO MAKE AN APPOINTMENT FOR FOLOW-UP CARE. IF YOU HAVE A PRIMARY DOCTOR --you should call your primary doctor and schedule and appointment IF YOU DO NOT HAVE A PRIMARY DOCTOR YOU CAN CALL OUR PHYSICIAN REFERRAL HOTLINE AT . IF YOU CAN NOT AFFORD TO SEE A PHYSICIAN YOU CAN CHOSE FROM THE FOLLOWING [facility] INSTITUTIONS: [facility] [address] [place] [address] [facility] [address] [place], [place] [id number] [place] [address] [address] [place] [address] [facility] Hours: Mon - Fri 9:00 AM - 5:00 PM Additional Instructions: Follow-up with an eye doctor in the next 1 to 2 days. Call your primary care doctor TOMORROW for an appointment during the next 1-2 days.See the doctor sooner or return here if your condition worsens before your appointment time. ROCIO MENDENHALL PA-C Dec 02, 2018 16:53
[2018-12-02 17:25] VITALS: BP 165/86; PULSE 72; RESP 19
--- NOTE | 2018-12-04 08:34 | EN ---
Date/Time of Note Date/Time of Note DATE: 12/04/18 TIME: 08:31 ER Progress Note I called the patient on her cell phone on 12/03/18 at 4:50 P.M. to follow up with her. She stated that she is doing better today and improving. She stated that her eye pain is less today. 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 ROCIO MENDENHALL PA-C Dec 04, 2018 08:34
== END 2018-12-02 17:26 | disposition home or self-care (01) ==
LOC: FTE 14:50
DX: H00.021 Hordeolum internum right upper eyelid (principal); I10 Essential (primary) hypertension; J45.909 Unspecified asthma, uncomplicated; Z79.01 Long term (current) use of anticoagulants; Z79.84 Long term (current) use of oral hypoglycemic drugs; Z86.73 Personal history of transient ischemic attack (TIA), and cerebral infarction without residual deficits
CPT/HCPCS: 70480; 96361; 96374; 96375; J2270; J2405; J7030; Z7502; Z7610

== ENCOUNTER 2019-02-16 17:19 | Inpatient (IN) | payer OTHER ==
[~2019-02-16] VITALS: Ht 160 cm; Wt 120.4 kg
[~2019-02-16 17:19] MED LIST changes: +ACYC400T2 PO; +ERYT1OIN6 RIGHT EYE; +IBUP-1542 PO; +LEVO250T9 PO; +LEVO50TA7 PO; +NIFE60TA2 PO; -OMEP20CA16 PO; +OMEP20CA17 PO
[2019-02-16 17:22] VITALS: Ht 160 cm; Wt 120.4 kg
[2019-02-16] MEDS ORDERED: morphine 4 MG/ML VIAL IV STA (17:50)
[2019-02-16] MEDS ORDERED: ACETAMINOPHEN 325 MG TAB PO ONE (21:00)
[2019-02-16] MEDS ORDERED: CEFEPIME 1GM/50 ML (PMX) 50 ML IV SCH (21:00)
[2019-02-16] MEDS ORDERED: BISACODYL (EC) 5 MG TAB PO PRN (21:30)
[2019-02-16] MEDS ORDERED: CARISOPRODOL 350 MG TAB PO PRN (21:30)
[2019-02-16] MEDS ORDERED: NACL 0.9% 3 ML SYG IV SCH (21:30)
[2019-02-16] MEDS ORDERED: DOCUSATE SODIUM 100 MG CAP PO PRN (21:30)
[2019-02-16] MEDS ORDERED: ONDANSETRON 4 MG INJ IV PRN (21:30)
[2019-02-16] MEDS ORDERED: hydrALAzine 20 MG INJ IV PRN (22:00)
[2019-02-16] MEDS: CEFTRIAXONE 2 GM/50 ML (PMX) 50 ML IVPB SCH (23:19)
[2019-02-16] MEDS: NIFEdipine (XL) 30 MG TAB PO SCH (23:22)
[2019-02-16] MEDS: LISINOPRIL 20 MG TAB PO SCH (23:22)
[2019-02-16] MEDS: morphine 2 MG INJ IV PRN (23:23)
[2019-02-17 02:19] VITALS: BP 150/83; PULSE 88; RESP 20
[2019-02-17] MEDS: ACETAMINOPHEN 325 MG TAB PO PRN ×3 (04:46→19:03)
[2019-02-17] MEDS: PANTOPRAZOLE (EC) 40 MG TAB PO SCH ×2 (06:00→08:54)
[2019-02-17 07:43] VITALS: BP 132/70; PULSE 81; RESP 18
[2019-02-17] MEDS: NIFEdipine (XL) 30 MG TAB PO SCH (08:54)
[2019-02-17] MEDS: LISINOPRIL 20 MG TAB PO SCH (08:55)
[2019-02-17] MEDS ORDERED: ERYTHROMYCIN 1 GM OPH OINT RIGHT EYE SCH (09:00)
[2019-02-17] MEDS ORDERED: LISINOPRIL 20 MG TAB PO SCH (09:00)
[2019-02-17] MEDS ORDERED: NIFEdipine (XL) 30 MG TAB PO SCH (09:00)
[2019-02-17] MEDS ORDERED: NON-FORMULARY/PATIENT OWN MED (Omeprazole* 20 MG) PO SCH (09:00)
[2019-02-17] MEDS ORDERED: GLUCOSE GEL 15 GRAM TUBE BUCCAL PRN (10:00)
[2019-02-17] MEDS ORDERED: GLUCAGON 1 MG INJ IM PRN (10:00)
[2019-02-17] MEDS ORDERED: DEXTROSE 50% 50 ML SYRINGE IV PRN ×2 (10:00)
[2019-02-17] MEDS ORDERED: GLUCOSE GEL 15 GRAM TUBE PO PRN ×2 (10:00)
[2019-02-17] MEDS: morphine 2 MG INJ IV PRN (13:18)
[2019-02-17] MEDS: ACET/BUTAL/CAFF TAB PO PRN ×2 (13:35→23:03)
[2019-02-17 13:57] VITALS: BP 135/83; PULSE 87; RESP 18
[2019-02-17 16:40] VITALS: BP 180/86; PULSE 106; RESP 18
[2019-02-17] MEDS ORDERED: metFORMIN 500 MG TAB PO SCH (17:55)
[2019-02-17] MEDS ORDERED: LORAZEPAM 2 MG INJ IV ONE (18:00)
[2019-02-17] MEDS: SOD CHLORIDE 0.9% 1,000 ML IV SCH (19:03)
[2019-02-17 19:34] VITALS: BP 142/80; PULSE 101; RESP 20
[2019-02-17] MEDS: CEFTRIAXONE 2 GM/50 ML (PMX) 50 ML IVPB SCH (22:56)
[2019-02-18 00:48] VITALS: BP 124/67; PULSE 93; RESP 20
[2019-02-18 03:59] VITALS: BP 133/77; PULSE 79; RESP 20
[2019-02-18] MEDS: SOD CHLORIDE 0.9% 1,000 ML IV SCH ×3 (06:20→22:07)
[2019-02-18] MEDS: PANTOPRAZOLE (EC) 40 MG TAB PO SCH (06:21)
[2019-02-18 07:18] VITALS: BP 132/89; PULSE 99; RESP 20
[2019-02-18] MEDS ORDERED: IOHEXOL 100 ML ONE (07:38)
[2019-02-18] MEDS ORDERED: SOD CHLORIDE 0.9% 100 ML ONE (07:38)
[2019-02-18] MEDS: ASPIRIN (EC) 81 MG TAB PO SCH (09:18)
[2019-02-18 11:47] VITALS: BP 158/81; PULSE 73; RESP 20
[2019-02-18 15:07] VITALS: BP 139/79; PULSE 82; RESP 20
[2019-02-18] MEDS: ACETAMINOPHEN 325 MG TAB PO PRN (18:00)
[2019-02-18 19:10] VITALS: BP 190/94; PULSE 90; RESP 20
[2019-02-18] MEDS: APIXABAN 5 MG TABLET PO SCH (20:41)
[2019-02-18] MEDS: ACET/BUTAL/CAFF TAB PO PRN (20:54)
[2019-02-18] MEDS: CEFTRIAXONE 2 GM/50 ML (PMX) 50 ML IVPB SCH (22:06)
[2019-02-19] VITALS (8 sets, daily range): BP systolic 131–175; BP diastolic 58–89; PULSE 81–92; RESP 18–20
[2019-02-19] MEDS ORDERED: SUMATRIPTAN 6 MG/0.5 ML INJ SC ONE (00:30)
[2019-02-19] MEDS: morphine 2 MG INJ IV PRN ×2 (04:06→13:03)
[2019-02-19] MEDS ORDERED: traMADol 50 MG TAB PO ONE (06:00)
[2019-02-19] MEDS: PANTOPRAZOLE (EC) 40 MG TAB PO SCH (06:30)
[2019-02-19] MEDS: APIXABAN 5 MG TABLET PO SCH ×2 (09:13→20:38)
[2019-02-19] MEDS: ASPIRIN (EC) 81 MG TAB PO SCH (09:13)
[2019-02-19] MEDS: SOD CHLORIDE 0.9% 1,000 ML IV SCH ×3 (09:30→20:37)
[2019-02-19] MEDS: predniSONE 20 MG TAB PO SCH (15:02)
[2019-02-19] MEDS: ACYCLOVIR 400 MG TAB PO SCH ×2 (16:15→22:01)
[2019-02-19] MEDS: ACET/BUTAL/CAFF TAB PO PRN (20:38)
[2019-02-19] MEDS: CEFTRIAXONE 2 GM/50 ML (PMX) 50 ML IVPB SCH (22:01)
[2019-02-20] VITALS: BP 146/80; PULSE 92; RESP 18
[2019-02-20] MEDS: SOD CHLORIDE 0.9% 1,000 ML IV SCH ×2 (02:20→13:09)
[2019-02-20 04:00] VITALS: BP 161/78; PULSE 88; RESP 18
[2019-02-20] MEDS: PANTOPRAZOLE (EC) 40 MG TAB PO SCH (05:29)
[2019-02-20] MEDS: LEVOTHYROXINE 50 MCG TAB PO SCH ×2 (05:29→05:30)
[2019-02-20 07:20] VITALS: BP 179/99; PULSE 74; RESP 17
[2019-02-20] MEDS: predniSONE 20 MG TAB PO SCH (08:26)
[2019-02-20] MEDS: ACET/BUTAL/CAFF TAB PO PRN ×2 (08:26→19:50)
[2019-02-20] MEDS: APIXABAN 5 MG TABLET PO SCH ×2 (08:26→19:50)
[2019-02-20] MEDS: ACYCLOVIR 400 MG TAB PO SCH ×3 (08:26→19:50)
[2019-02-20] MEDS: morphine 2 MG INJ IV PRN (10:42)
[2019-02-20 11:05] VITALS: BP 176/86; PULSE 99; RESP 17
[2019-02-20] MEDS ORDERED: LISINOPRIL 20 MG TAB PO SCH (11:30)
[2019-02-20] MEDS ORDERED: NIFEdipine (XL) 30 MG TAB PO SCH (11:30)
[2019-02-20] MEDS: NIFEdipine (XL) 30 MG TAB PO SCH (11:48)
[2019-02-20] MEDS: LISINOPRIL 20 MG TAB PO SCH (11:48)
[2019-02-20 15:46] VITALS: BP 170/90; PULSE 96; RESP 17
[2019-02-20 19:15] VITALS: BP 176/89; PULSE 90; RESP 18
[2019-02-20] MEDS: CEFTRIAXONE 2 GM/50 ML (PMX) 50 ML IVPB SCH (23:34)
[2019-02-21] VITALS (7 sets, daily range): BP systolic 135–160; BP diastolic 75–113; PULSE 66–95; RESP 18
[2019-02-21] MEDS: HYDROCODONE/APAP (5/325) TAB PO PRN ×3 (04:29→20:21)
[2019-02-21] MEDS: LEVOTHYROXINE 50 MCG TAB PO SCH (05:49)
[2019-02-21] MEDS: PANTOPRAZOLE (EC) 40 MG TAB PO SCH (05:49)
[2019-02-21] MEDS: predniSONE 20 MG TAB PO SCH (08:47)
[2019-02-21] MEDS: NIFEdipine (XL) 30 MG TAB PO SCH (08:48)
[2019-02-21] MEDS: APIXABAN 5 MG TABLET PO SCH ×2 (08:48→20:17)
[2019-02-21] MEDS: ACYCLOVIR 400 MG TAB PO SCH ×3 (08:48→20:17)
[2019-02-21] MEDS: LISINOPRIL 20 MG TAB PO SCH (08:49)
[2019-02-21] MEDS: CEFTRIAXONE 2 GM/50 ML (PMX) 50 ML IVPB SCH (22:15)
[2019-02-22 04:30] VITALS: BP 152/84; PULSE 68; RESP 18
[2019-02-22] MEDS: LEVOTHYROXINE 50 MCG TAB PO SCH (05:52)
[2019-02-22] MEDS: PANTOPRAZOLE (EC) 40 MG TAB PO SCH (05:52)
[2019-02-22 07:27] VITALS: BP 147/78; PULSE 73; RESP 17
[2019-02-22] MEDS ORDERED: NIFEdipine (XL) 60 MG TAB PO SCH (09:00)
[2019-02-22] MEDS: ACYCLOVIR 400 MG TAB PO SCH ×2 (09:43→13:54)
[2019-02-22] MEDS: APIXABAN 5 MG TABLET PO SCH (09:43)
[2019-02-22] MEDS: predniSONE 20 MG TAB PO SCH (09:43)
[2019-02-22] MEDS: LISINOPRIL 20 MG TAB PO SCH (09:44)
[2019-02-22 11:45] VITALS: BP 137/78; PULSE 78; RESP 18
[2019-02-22 16:00] VITALS: BP 133/75; PULSE 85; RESP 17
== END 2019-02-22 17:23 | disposition home or self-care (01) | DRG 690 ==
LOC: E/R 17:19 → MS1 21:08 → 6WM 02-17 16:40
PROVIDERS: ADMIT Family Medicine; ATTEND Internal Medicine
DX: N39.0 Urinary tract infection, site not specified (principal); Z68.42 Body mass index [BMI] 45.0-49.9, adult; E11.8 Type 2 diabetes mellitus with unspecified complications; E66.01 Morbid (severe) obesity due to excess calories; R31.9 Hematuria, unspecified; I10 Essential (primary) hypertension; E78.5 Hyperlipidemia, unspecified; I16.0 Hypertensive urgency; G51.0 Bell's palsy
CPT/HCPCS: 36415; 70450; 70498; 70549; 70551; 74176; 80048; 80053; 80061; 81001; 82550; 82553; 82962; 83036; 83605; 83735; 84100; 84439; 84443; 84484; 84702; 85025; 86900; 86901; 87086; 92526; 92610; 93005; 96365; 96375; 97110; 97116; 97162; 97530; J0360; J0692; J0696; J2060; J2270; J3030; J7030; J7512; Q9967